=== PATIENT | female | born 1990 | race Caucasian/White ===

== ENCOUNTER 2022-08-07 18:00 | Inpatient (IN) | payer BC ==
[2022-08-07 19:21] VITALS: BMI 36.9
[2022-08-07] MEDS ORDERED: Tranexamic Acid 1,000 MG/10 ML VIAL IVP PRN (20:30)
[2022-08-07] MEDS ORDERED: Methylergonovine 0.2 MG/ML VIAL IM PRN (20:30)
[2022-08-07] MEDS ORDERED: Promethazine HCl 25 MG/ML VIAL IM PRN (20:30)
[2022-08-07] MEDS ORDERED: hydrALAZINE 20 MG/ML VIAL SLOW IVP PRN (20:30)
[2022-08-07] MEDS ORDERED: Lidocaine 1% (PF) 30 ML VIAL SC PRN (20:30)
[2022-08-07] MEDS ORDERED: Butorphanol Tartrate 1 MG/ML VIAL SLOW IVP PRN (20:30)
[2022-08-07] MEDS ORDERED: Acetaminophen 500 MG TAB PO PRN (20:30)
[2022-08-07] MEDS ORDERED: Misoprostol 200 MCG TAB PR PRN (20:30)
[2022-08-07] MEDS: Misoprostol 100 MCG TAB VAG SCH (20:58)
[2022-08-07 21:00] LABS: Hemoglobin 12.8 g/dL (12.0-15.5); Mean Corpuscular HGB CONC 33.2 g/dL (32.0-36.0); Mean Corpuscular Volume 90.2 fl (81.6-98.3); Mean Platelet Volume 10.9 fl (7.4-10.4); Platelet Count 344 10x3/uL (150-450); RBC Distribution Width 13.9 % (11.5-14.5); Red Blood Cell (RBC) Count 4.27 10x6/uL (3.90-5.03); White Blood Cell (WBC) Count 12.8 10x3/uL (3.5-10.5)
[2022-08-07] MEDS ORDERED: NS w/ Oxytocin 30 units 500 ML IV SCH ×2 (21:00)
[2022-08-07 22:20] LABS: HBSAg Index 0.13 S/CO (0-0.99); Hep B Surf Ag - L&D Non-Reactive S/CO (NonReactive)
[2022-08-07 22:21] LABS: Syphilis Antibody Nonreactive (Nonreactive); Syphilis Antibody Index 0.04 S/CO (<1.00 Non-Reactive)
[2022-08-08] MEDS: Misoprostol 100 MCG TAB VAG SCH ×4 (00:03→19:04)
[2022-08-08] MEDS ORDERED: Misoprostol 100 MCG TAB ONE ×2 (06:03→09:58)
[2022-08-08] MEDS ORDERED: Ibuprofen 800 MG TAB PO PRN (09:59)
[2022-08-08] MEDS ORDERED: HYDROcodone/Acetaminophen 5/325 mg Tablet PO PRN (09:59)
[2022-08-08] MEDS: Misoprostol 100 MCG TAB PO SCH ×5 (10:24→21:08)
[2022-08-08] MEDS: Lactated Ringer's 1,000 ML IV SCH ×3 (12:10→21:05)
[2022-08-08] MEDS: Levothyroxine Sodium 75 MCG TAB PO SCH (21:07)
[2022-08-09] MEDS: Misoprostol 100 MCG TAB VAG SCH ×3 (00:05→11:05)
[2022-08-09] MEDS ORDERED: Fentanyl 2 mcg/Bup 0.1% Cadd 100 ML ONE (00:16)
[2022-08-09] MEDS: Lactated Ringer's 1,000 ML IV SCH (00:37)
[2022-08-09] MEDS ORDERED: Promethazine HCl 25 MG/ML VIAL IM PRN (00:50)
[2022-08-09] MEDS ORDERED: Moisturizing Cream (Eucerin) 113 GM JAR TOP PRN (00:50)
[2022-08-09] MEDS ORDERED: Ondansetron PF 4 MG/2 ML Vial IVP PRN (00:50)
[2022-08-09] MEDS ORDERED: Naloxone HCl 0.4 mg/ml Vial IVP PRN ×2 (00:50)
[2022-08-09] MEDS ORDERED: diphenhydrAMINE 50 MG/ML VIAL IVP PRN (00:50)
[2022-08-09] MEDS ORDERED: ePHEDrine Sulfate 50 MG/10 ML VIAL SLOW IVP PRN (00:50)
[2022-08-09] MEDS ORDERED: Acetaminophen 325 MG TAB PO PRN (00:50)
[2022-08-09] MEDS ORDERED: Lactated Ringer's 500 ML IV PRN (00:50)
[2022-08-09] MEDS ORDERED: Communication Order-Pharmacy FS SCH (01:00)
[2022-08-09] MEDS ORDERED: Fentanyl 2 mcg/Bupivacaine 0.1% Cassette 100 ML EPIDURAL SCH (01:00)
[2022-08-09] MEDS: Misoprostol 100 MCG TAB PO SCH ×3 (01:08→11:06)
[2022-08-09] MEDS: Ondansetron PF 4 MG/2 ML Vial IVP PRN ×2 (03:25→07:30)
[2022-08-09] MEDS ORDERED: Bisacodyl 10 MG SUPP PR PRN (08:41)
[2022-08-09] MEDS ORDERED: Preparation H Ointment 28 GM TUBE PR PRN (08:41)
[2022-08-09] MEDS ORDERED: Lanolin Ointment 7 GM TUBE TOP PRN (08:41)
[2022-08-09] MEDS ORDERED: Milk Of Magnesia 30 ML UDCUP PO PRN (08:41)
[2022-08-09] MEDS: Prenatal Vitamin 1 TAB PO SCH (11:06)
[2022-08-09] MEDS: Docusate 100 MG CAP PO SCH ×2 (11:06→21:16)
[2022-08-09] MEDS: Ibuprofen 800 MG TAB PO SCH ×2 (14:09→21:16)
[2022-08-09] MEDS: Ferrous Sulfate 325 MG TAB PO SCH (18:16)
[2022-08-09] MEDS ORDERED: Benzocaine-Menthol 82.5 ML CAN TOP PRN (20:28)
[2022-08-09] MEDS: Levothyroxine Sodium 75 MCG TAB PO SCH (21:16)
[2022-08-10] MEDS: Misoprostol 100 MCG TAB PO SCH ×2 (04:05→13:43)
[2022-08-10] MEDS: Misoprostol 100 MCG TAB VAG SCH ×3 (04:05→13:43)
[2022-08-10 04:40] LABS: #Basophils 0.1 10x3/uL (0.0-0.2); #Eosinphils 0.1 10x3/uL (0.0-0.5); #Monocytes 1.4 10x3/uL (0.0-1.1); #Neutrophils 13.4 10x3/uL (1.5-8.4); %Basophils 0.6 % (0.0-2.0); %Eosinophils 0.4 % (0.0-6.0); %Lymphocytes 16.5 % (18.0-47.0); %Monocytes 7.9 % (0.0-10.0); %Neutrophils 73.7 % (40.0-75.0); Hemoglobin 10.6 g/dL (12.0-15.5); Mean Corpuscular Volume 90.9 fl (81.6-98.3); Mean Platelet Volume 10.2 fl (7.4-10.4); Platelet Count 260 10x3/uL (150-450); Red Blood Cell (RBC) Count 3.53 10x6/uL (3.90-5.03); White Blood Cell (WBC) Count 18.2 10x3/uL (3.5-10.5)
[2022-08-10] MEDS: Ibuprofen 800 MG TAB PO SCH ×3 (04:51→21:18)
[2022-08-10] MEDS: Prenatal Vitamin 1 TAB PO SCH (08:44)
[2022-08-10] MEDS: Docusate 100 MG CAP PO SCH ×2 (08:45→21:18)
[2022-08-10] MEDS: Ferrous Sulfate 325 MG TAB PO SCH ×2 (13:43→18:27)
[2022-08-10 19:55] VITALS: TEMP 98.2
[2022-08-10] MEDS: Levothyroxine Sodium 75 MCG TAB PO SCH (21:18)
[2022-08-11] MEDS: Misoprostol 100 MCG TAB PO SCH ×4 (01:30→09:59)
[2022-08-11] MEDS: Misoprostol 100 MCG TAB VAG SCH ×4 (05:22→09:59)
[2022-08-11] MEDS: Ibuprofen 800 MG TAB PO SCH (05:48)
[2022-08-11 08:30] VITALS: BP 113/77
[2022-08-11] MEDS: Prenatal Vitamin 1 TAB PO SCH (08:40)
[2022-08-11] MEDS: Docusate 100 MG CAP PO SCH (08:40)
[2022-08-11] MEDS: Ferrous Sulfate 325 MG TAB PO SCH (08:41)
[2022-08-11] MEDS ORDERED: Witch Hazel-Glycerin 1 EACH JAR TOP PRN (09:51)
== END 2022-08-11 13:30 | disposition home or self-care (01) | DRG 807 ==
LOC: CSHLD 18:58 → CSHPP 08-09 10:45
PROVIDERS: ADMIT Family Medicine; ATTEND Obstetrics & Gynecology
PROC: 10E0XZZ Delivery of Products of Conception, External Approach (ICD-10-PCS; principal; 2022-08-09)
PROC: 0KQM0ZZ Repair Perineum Muscle, Open Approach (ICD-10-PCS; 2022-08-09)
PROC: 3E0DXGC Introduction of Other Therapeutic Substance into Mouth and Pharynx, External Approach (ICD-10-PCS; 2022-08-09)
PROC: 10H07YZ Insertion of Other Device into Products of Conception, Via Natural or Artificial Opening (ICD-10-PCS; 2022-08-09)
PROC: 0HQ9XZZ Repair Perineum Skin, External Approach (ICD-10-PCS; 2022-08-09)
DX: O99.214 Obesity complicating childbirth (principal); Z37.0 Single live birth; Z3A.39 39 weeks gestation of pregnancy; E03.9 Hypothyroidism, unspecified; F41.9 Anxiety disorder, unspecified; J45.909 Unspecified asthma, uncomplicated; E66.9 Obesity, unspecified; K21.9 Gastro-esophageal reflux disease without esophagitis; Z98.84 Bariatric surgery status; O99.284 Endocrine, nutritional and metabolic diseases complicating childbirth; O99.344 Other mental disorders complicating childbirth; O99.52 Diseases of the respiratory system complicating childbirth; O99.62 Diseases of the digestive system complicating childbirth; O70.1 Second degree perineal laceration during delivery; Z79.890 Hormone replacement therapy
CPT/HCPCS: 36415; 51702; 85025; 85027; 86780; 86850; 86900; 86901; 87340; J2405; J7120